=== PATIENT | female | born 1965 | race Caucasian/White ===

== ENCOUNTER 2020-02-13 20:20 | Emergency (ER) | payer MEDICAID ==
[~2020-02-13] VITALS: Ht 167.6 cm; Wt 80.8 kg
--- NOTE | 2020-02-13 20:38 | NUR ---
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
[2020-02-13 21:01] LABS: MICROSCOPIC INDICATED
--- NOTE | 2020-02-13 21:16 | NUR ---
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
--- NOTE | 2020-02-13 21:48 | NUR ---
pt here for llq pain. vss. pt had uti last week and took meds for it and is now having pain. pt back from ct. waiting for results. call light in reach
--- NOTE | 2020-02-13 22:22 | NUR ---
PT STRAIGHT CATHED. PT TOLERATED WELL. VSS. UA WALKED TO LAB. PT HAS NO NEEDS AT THIS TIME. CALL LIGHT IN REACH
[2020-02-13 23:02] LABS: MICROSCOPIC INDICATED
[2020-02-13] MEDS ORDERED: KETOROLAC 30 MG/1 ML ONE (23:40)
[2020-02-13 23:46] VITALS: BP 108/59
--- NOTE | 2020-02-13 23:56 | NUR ---
Patient given discharge instructions and they have confirmed that they understand the instructions. Patient ambulatory with steady gait.
[2020-02-14] MEDS ORDERED: KETOROLAC 30 MG/1 ML IM ONE
== END 2020-02-13 23:55 | disposition home or self-care (01) ==
LOC: ED 21:54
DX: N13.2 Hydronephrosis with renal and ureteral calculous obstruction (principal); R10.32 Left lower quadrant pain
CPT/HCPCS: 74176; 81001; 87086; 96372; 99284; J1885